=== PATIENT | female | born 1960 | race Caucasian/White ===

== ENCOUNTER 2018-03-18 01:19 | Emergency (ER) | payer OTHER ==
[~2018-03-18] VITALS: Ht 165.1 cm; Wt 71.0 kg
[2018-03-18] MEDS ORDERED: ONDANSETRON ODT 4 MG PO ONE (02:00)
[2018-03-18 02:11] LABS: BASOPHILS # (AUTO) 0.02 x10^3/uL (0-0.1); BASOPHILS % (AUTO) 0 % (0-1); EOSINOPHILS # (AUTO) 0.07 x10^3/uL (0-0.4); EOSINOPHILS % (AUTO) 1 % (1-7); LYMPHOCYTES # (AUTO) 1.31 x10^3/uL (1-3.4); LYMPHOCYTES % (AUTO) 22 % (22-44); MD NO; MEAN CORPUSCULAR HEMOGLOBIN 30.2 pg (27.0-34.8); MEAN CORPUSCULAR HGB CONC 34.4 g/dL (32.4-35.8); MEAN CORPUSCULAR VOLUME 87.8 fL (80-100); MONOCYTES # (AUTO) 0.39 x10^3/uL (0.2-0.8); MONOCYTES % (AUTO) 7 % (2-9); NEUTROPHILS % (AUTO) 70 % (42-75); PLATELET COUNT 340 x10^3/uL (130-400); RED BLOOD COUNT 4.25 x10^6/uL (3.82-5.3)
[2018-03-18] MEDS ORDERED: ONDANSETRON ODT 4 MG ONE (02:12)
[2018-03-18 02:21] LABS: ALANINE AMINOTRANSFERASE 31 U/L (12-78); ALBUMIN 4.4 g/dL (3.4-5.0); ANION GAP 7 mmol/L (5-15); CALCIUM 11.1 mg/dL (8.5-10.1); CHLORIDE 102 mmol/L (98-107); CREATININE 0.91 mg/dL (0.55-1.02)
[2018-03-18 02:26] LABS: ALKALINE PHOSPHATASE 70 U/L (45-117); BILIRUBIN,TOTAL 0.5 mg/dL (0.2-1.0); TOTAL PROTEIN 8.4 g/dL (6.4-8.2); TROPONIN I < 0.015 ng/mL (0.000-0.045)
[2018-03-18 03:02] LABS: MICROSCOPIC AUTO
[2018-03-18 03:17] LABS: CULTURE INDICATED? YES
[2018-03-18] MEDS ORDERED: MECLIZINE CHEWABLE 25 MG TAB ONE (03:49)
[2018-03-18] MEDS ORDERED: MECLIZINE CHEWABLE 25 MG TAB PO ONE (04:00)
[2018-03-18 04:05] VITALS: BP 151/88
== END 2018-03-18 04:24 | disposition home or self-care (01) ==
LOC: ED 04:20
DX: R42 Dizziness and giddiness (principal); R11.10 Vomiting, unspecified; R51 Headache; I10 Essential (primary) hypertension; R82.99 Other abnormal findings in urine; Z88.8 Allergy status to other drugs, medicaments and biological substances; Z88.5 Allergy status to narcotic agent
CPT/HCPCS: 36415; 80053; 81001; 84443; 84484; 85025; 87086; 93005; 99285; Q0162

== ENCOUNTER 2019-03-07 22:52 | Emergency (ER) | payer OTHER ==
[~2019-03-07] VITALS: Ht 167.6 cm; Wt 77.3 kg
--- NOTE | 2019-03-07 23:10 | NUR ---
PT STATES OVER THE PAST 2-3 DAYS SHE HAS HAD DIZZINESS, NAUSEA WITH NO VOMITTING. PT STATES SHE HAD LOOSE STOOLS, TWO TIMES TODAY. PT RESTING ON JOHANA POWELL AT BEDSIDE PER PT REQUEST.
--- NOTE | 2019-03-07 23:12 | NUR ---
ER MD POND AT BEDSIDE TO ASSESS.
--- NOTE | 2019-03-07 23:13 | NUR ---
PT ATTACHED TO ALL MONITORS
[2019-03-07] MEDS ORDERED: MECLIZINE CHEWABLE 25 MG TAB ONE (23:28)
[2019-03-07] MEDS ORDERED: ONDANSETRON 2MG/ML, 2ML IVPush ONE (23:30)
[2019-03-07] MEDS ORDERED: MECLIZINE CHEWABLE 25 MG TAB PO ONE (23:30)
[2019-03-07 23:41] LABS: BASOPHILS # (AUTO) 0.01 x10^3/uL (0-0.1); BASOPHILS % (AUTO) 0 % (0-1); EOSINOPHILS # (AUTO) 0.04 x10^3/uL (0-0.4); EOSINOPHILS % (AUTO) 1 % (1-7); LYMPHOCYTES # (AUTO) 1.11 x10^3/uL (1-3.4); LYMPHOCYTES % (AUTO) 17 % (22-44); MD NO; MEAN CORPUSCULAR HEMOGLOBIN 29.8 pg (27.0-34.8); MEAN CORPUSCULAR HGB CONC 33.6 g/dL (32.4-35.8); MEAN CORPUSCULAR VOLUME 88.9 fL (80-100); MEAN PLATELET VOLUME 7.9 fL (7.4-10.4); MONOCYTES # (AUTO) 0.36 x10^3/uL (0.2-0.8); MONOCYTES % (AUTO) 6 % (2-9); NEUTROPHILS # (AUTO) 4.94 x10^3/uL (1.8-6.8); NEUTROPHILS % (AUTO) 76 % (42-75); PLATELET COUNT 289 x10^3/uL (130-400); RED BLOOD COUNT 4.22 x10^6/uL (3.82-5.3); RED CELL DISTRIBUTION WIDTH 13.4 % (9.6-15.2)
[2019-03-07] MEDS ORDERED: ONDANSETRON ODT 4 MG ONE (23:48)
[2019-03-07 23:53] LABS: ALANINE AMINOTRANSFERASE 31 U/L (12-78); ANION GAP 12 mmol/L (5-15); CALCIUM 9.4 mg/dL (8.5-10.1); CHLORIDE 98 mmol/L (98-107); CREATININE 0.94 mg/dL (0.55-1.02)
[2019-03-07 23:58] LABS: ALKALINE PHOSPHATASE 97 U/L (45-117); BILIRUBIN,TOTAL 0.4 mg/dL (0.2-1.0); TROPONIN I < 0.015 ng/mL (0.000-0.045)
[2019-03-08] MEDS ORDERED: POTASSIUM CHLORIDE 20 MEQ TAB.ER.PRT ONE (00:04)
[2019-03-08] MEDS ORDERED: POTASSIUM CHLORIDE 20 MEQ TAB.ER.PRT PO ONE (00:30)
[2019-03-08] MEDS ORDERED: ONDANSETRON ODT 4 MG PO ONE (00:30)
--- NOTE | 2019-03-08 01:09 | NUR ---
CALLED [facility] AND INQUIRED ABOUT DELAY IN RESULTS FOR CXR. RAD SAID THEY WILL LOOK INTO IT AND CALL BACK
--- NOTE | 2019-03-08 01:11 | NUR ---
RECEIVED REPORT FROM NADINE THOMPSON AND NADINE PEGUERO TO ASSUME CARE OF PT. AWAITING RAD READ ON X-RAY.
--- NOTE | 2019-03-08 01:15 | NUR ---
REPORT GIVEN TO NADINE ESPINO
[2019-03-08] MEDS ORDERED: PROMETHAZINE 25 MG/ML, 1ML ONE (01:43)
[2019-03-08] MEDS ORDERED: PROMETHAZINE 25 MG/ML, 1ML IM ONE (02:00)
[2019-03-08 02:13] VITALS: BP 145/78
== END 2019-03-08 02:14 | disposition home or self-care (01) ==
LOC: ED 03-08 00:05
DX: R42 Dizziness and giddiness (principal); R11.0 Nausea
CPT/HCPCS: 36415; 71045; 80053; 84484; 85025; 93005; 96372; 99284; J2550; Q0162

== ENCOUNTER → 2019-09-27 | Outpatient (CLI) | payer BC | END | disposition home or self-care (01) | LOC: CFH 15:20 | PROVIDERS: ATTEND Orthopaedic Surgery | DX: M25.775 Osteophyte, left foot (principal); M21.6X2 Other acquired deformities of left foot ==

== ENCOUNTER 2019-10-07 15:39 | Outpatient (CLI) | payer BC ==
[2019-10-07] MEDS ORDERED: FENO135C4 PO (16:30)
[2019-10-07] MEDS ORDERED: IBUP-1223 PO (16:30)
[2019-10-07] MEDS ORDERED: CYCL-259 PO (16:30)
[2019-10-07] MEDS ORDERED: HYDR25TA6 PO (16:30)
[2019-10-07] MEDS ORDERED: MULT-658 PO (16:30)
[2019-10-07] MEDS ORDERED: OMEP20TA62 PO (16:30)
[2019-10-07] MEDS ORDERED: VITA400C43 PO (16:30)
[2019-10-07] MEDS ORDERED: POTA99TA2 PO (16:30)
[2019-10-07 17:00] LABS: ALANINE AMINOTRANSFERASE 28 U/L (12-78); ALBUMIN 4.1 g/dL (3.4-5.0); ANION GAP 6 mmol/L (5-15); CALCIUM 9.5 mg/dL (8.5-10.1); CHLORIDE 99 mmol/L (98-107); CREATININE 0.85 mg/dL (0.55-1.02)
[2019-10-07 17:02] LABS: ALKALINE PHOSPHATASE 91 U/L (45-117); BILIRUBIN,TOTAL 0.4 mg/dL (0.2-1.0); TOTAL PROTEIN 8.3 g/dL (6.4-8.2)
== END 2019-10-07 23:59 | disposition home or self-care (01) ==
LOC: STAR 15:39
PROVIDERS: ATTEND Orthopaedic Surgery
DX: Z01.812 Encounter for preprocedural laboratory examination (principal); M14.672 Charcot's joint, left ankle and foot
CPT/HCPCS: 36415; 80053

== ENCOUNTER 2019-10-14 08:25 | Inpatient (IN) | payer BC ==
[~2019-10-14] VITALS: Ht 167.6 cm; Wt 82.0 kg
[~2019-10-14 08:25] MED LIST: CYCL-259 PO; FENO135C4 PO; HYDR25TA6 PO; IBUP-1223 PO; MULT-658 PO; OMEP20TA62 PO; POTA99TA2 PO; VITA400C43 PO
[2019-10-14] MEDS ORDERED: LACTATED RINGERS 1,000 ML IV SCH (08:52)
[2019-10-14] MEDS ORDERED: ACETAMINOPHEN 500 MG TABLET PO ONE (09:00)
[2019-10-14] MEDS ORDERED: FENTANYL PF 250 MCG/5ML ONE (09:20)
[2019-10-14] MEDS ORDERED: MIDAZOLAM 1 MG/ML, 2ML ONE (09:20)
[2019-10-14] MEDS ORDERED: PROPOFOL 10 MG/ML, 20ML ONE (09:20)
[2019-10-14] MEDS ORDERED: DEXAMETHASONE 4 MG/ML, 1ML ONE ×2 (09:21)
[2019-10-14] MEDS ORDERED: ONDANSETRON 2MG/ML, 2ML ONE (09:21)
[2019-10-14] MEDS ORDERED: LIDOCAINE-MPF 2% ,5ML ONE (09:21)
[2019-10-14] MEDS ORDERED: CEFAZOLIN 1,000 MG ONE ×2 (09:21)
[2019-10-14] MEDS ORDERED: GLYCOPYRROLATE 0.2MG/1ML, 5ML ONE (10:25)
[2019-10-14] MEDS ORDERED: NEOSTIGMINE 1 MG/ML, 10ML ONE (10:25)
[2019-10-14] MEDS ORDERED: ROCURONIUM 10MG/ML,5ML ONE (10:25)
[2019-10-14] MEDS ORDERED: ROPIVACAINE 0.2% INJ ONE (11:00)
[2019-10-14] MEDS ORDERED: FENTANYL PF 100 MCG/2ML ONE (13:46)
[2019-10-14] MEDS: FENTANYL PF 100 MCG/2ML IV PRN ×4 (13:48→14:21)
[2019-10-14] MEDS ORDERED: GABAPENTIN 300 MG CAPSULE PO ONE (14:00)
[2019-10-14] MEDS ORDERED: HYDROmorphone 1 MG/ML, 1ML INJ IV PRN (14:00)
[2019-10-14] MEDS ORDERED: ONDANSETRON 2MG/ML, 2ML IV PRN ×2 (14:00→16:00)
[2019-10-14] MEDS ORDERED: LORazepam 2 MG/ML, 1ML IVPush PRN (14:00)
[2019-10-14] MEDS ORDERED: MEPERIDINE/PF 25MG/ML,1ML IVPush PRN (14:00)
[2019-10-14] MEDS ORDERED: HYDROmorphone 2 MG/ML, 1ML IVPush PRN (14:00)
[2019-10-14] MEDS ORDERED: BISACODYL 10 MG SUPP PR PRN (16:00)
[2019-10-14] MEDS ORDERED: HYDROcodone/APAP 5/325 TABLET PO PRN (16:00)
[2019-10-14] MEDS ORDERED: ACETAMINOPHEN 325 MG TABLET PO PRN (16:00)
[2019-10-14] MEDS ORDERED: DIPHENHYDRAMINE 25 MG CAPSULE PO PRN (16:00)
[2019-10-14] MEDS ORDERED: SENNA/DOCUSATE TABLET PO PRN (16:00)
[2019-10-14] MEDS: CEFAZOLIN PMX 2GM/50ML 50 ML IVPB SCH (18:24)
[2019-10-14 19:30] VITALS: BP 134/84
[2019-10-14] MEDS ORDERED: CYCLOBENZAPRINE 10 MG TABLET PO SCH (21:00)
[2019-10-14] MEDS: SODIUM CHLORIDE FLUSH 10ML SYR IVF SCH ×2 (21:00→21:15)
[2019-10-14] MEDS ORDERED: VITAMIN E 400 UNITS CAPSULE PO SCH (21:00)
[2019-10-14] MEDS: DOCUSATE 100 MG CAPSULE PO SCH (21:15)
[2019-10-14] MEDS ORDERED: ONDANSETRON 2MG/ML, 2ML IVPush PRN (22:00)
[2019-10-14] MEDS ORDERED: ONDANSETRON ODT 4 MG PO PRN (22:00)
[2019-10-15] VITALS: BP 126/88
[2019-10-15] MEDS: CEFAZOLIN PMX 2GM/50ML 50 ML IVPB SCH (02:14)
[2019-10-15 03:58] VITALS: BP 122/79
[2019-10-15] MEDS ORDERED: OMEPRAZOLE 20 MG CAPSULE.DR PO SCH (06:00)
[2019-10-15 07:09] VITALS: BP 135/82
[2019-10-15] MEDS: DOCUSATE 100 MG CAPSULE PO SCH (08:34)
[2019-10-15] MEDS: SODIUM CHLORIDE FLUSH 10ML SYR IVF SCH ×2 (08:36)
[2019-10-15] MEDS ORDERED: MULTIVITAMIN 1 TABLET PO SCH (09:00)
[2019-10-15] MEDS ORDERED: FENOFIBRATE 145 MG TABLET PO SCH (09:00)
[2019-10-15] MEDS ORDERED: HYDROCHLOROTHIAZIDE 25 MG TABLET PO SCH (09:00)
[2019-10-15 11:53] VITALS: BP 140/88
== END 2019-10-15 13:30 | disposition home or self-care (01) | DRG 505 ==
LOC: ORIP 08:25 → 4NE 15:34
PROVIDERS: ADMIT Orthopaedic Surgery; ATTEND Orthopaedic Surgery
PROC: 0QHM35Z Insertion of External Fixation Device into Left Tarsal, Percutaneous Approach (ICD-10-PCS; 2019-10-14)
PROC: 0SSG34Z Reposition Left Ankle Joint with Internal Fixation Device, Percutaneous Approach (ICD-10-PCS; 2019-10-14)
PROC: 3E0T3BZ Introduction of Anesthetic Agent into Peripheral Nerves and Plexi, Percutaneous Approach (ICD-10-PCS; 2019-10-14)
PROC: 0L8P3ZZ Division of Left Lower Leg Tendon, Percutaneous Approach (ICD-10-PCS; principal; 2019-10-14 10:15)
PROC: 0QSM04Z Reposition Left Tarsal with Internal Fixation Device, Open Approach (ICD-10-PCS; 2019-10-14 10:15)
DX: M14.672 Charcot's joint, left ankle and foot (principal); K21.9 Gastro-esophageal reflux disease without esophagitis; I10 Essential (primary) hypertension; M21.6X2 Other acquired deformities of left foot; F41.9 Anxiety disorder, unspecified; Z88.6 Allergy status to analgesic agent; Z88.8 Allergy status to other drugs, medicaments and biological substances; Z79.899 Other long term (current) drug therapy; Z88.5 Allergy status to narcotic agent
CPT/HCPCS: 73620; 76000; J3490; C1713; G0378; J0690; J1100; J1170; J2250; J2405; J2704; J2710; J2795; J3010; Q0162; J7120

== ENCOUNTER → 2019-10-28 | Outpatient (CLI) | payer BC | END | disposition home or self-care (01) | LOC: RAD 15:53 | PROVIDERS: ATTEND Orthopaedic Surgery | DX: M14.672 Charcot's joint, left ankle and foot (principal) ==

== ENCOUNTER → 2021-03-13 | Outpatient (CLI) | payer BC ==
[~2021-03-13] MED LIST changes: +BISA5TAB5 PO; -CYCL-259 PO; +CYCL10TA2 PO; +MECL-101 PO
[2021-03-13 13:57] LABS: ALBUMIN 3.7 g/dL (3.4-5.0); ANION GAP 5 mmol/L (5-15); CALCIUM 9.7 mg/dL (8.5-10.1); CHLORIDE 100 mmol/L (98-107)
[2021-03-13 14:03] LABS: ALANINE AMINOTRANSFERASE 33 U/L (12-78); ALKALINE PHOSPHATASE 109 U/L (45-117); BILIRUBIN,TOTAL 0.5 mg/dL (0.2-1.0); CREATININE 0.78 mg/dL (0.55-1.02); TOTAL PROTEIN 7.9 g/dL (6.4-8.2)
== END | disposition home or self-care (01) ==
LOC: STAR 12:20
PROVIDERS: ADMIT Orthopaedic Surgery; ATTEND Orthopaedic Surgery
DX: Z01.818 Encounter for other preprocedural examination (principal); M14.671 Charcot's joint, right ankle and foot; I51.7 Cardiomegaly; R00.0 Tachycardia, unspecified
CPT/HCPCS: 36415; 80053; 93005

== ENCOUNTER 2021-03-22 06:54 | Day surgery (SDC) | payer BC ==
[~2021-03-22] VITALS: Ht 167.6 cm; Wt 78.4 kg
[2021-03-22] MEDS ORDERED: MIDAZOLAM 1 MG/ML, 2ML ONE (07:21)
[2021-03-22] MEDS ORDERED: FENTANYL PF 250 MCG/5ML ONE (07:22)
[2021-03-22 07:44] VITALS: BP 134/86
[2021-03-22] MEDS ORDERED: BUPIVACAINE/PF 0.5% ONE ×3 (07:44→09:48)
[2021-03-22] MEDS ORDERED: LIDOCAINE/PF 1%, 30ML ONE (07:45)
[2021-03-22] MEDS ORDERED: CHLORHEXIDINE 15 ML UDC ONE (07:45)
[2021-03-22] MEDS ORDERED: CHLORHEXIDINE 15 ML UDC PO ONE (08:00)
[2021-03-22] MEDS ORDERED: LIDOCAINE-MPF 1%, 2ML INFIL ONE (08:00)
[2021-03-22] MEDS ORDERED: LACTATED RINGERS 1,000 ML IV SCH (08:00)
[2021-03-22] MEDS ORDERED: TRANEXAMIC ACID 100 MG/ML, 10ML ONE (08:51)
[2021-03-22] MEDS ORDERED: PROMETHAZINE 25 MG/ML, 1ML IVPush PRN (09:30)
[2021-03-22] MEDS ORDERED: ROPIvacaine/PF 0.2%, 100ML 550 ML (check volume) INJ ONE (09:30)
[2021-03-22] MEDS ORDERED: ALBUTEROL SULFATE 2.5 MG/3 ML NPPB PRN (09:30)
[2021-03-22] MEDS ORDERED: MIDAZOLAM 1 MG/ML, 2ML IV PRN (09:30)
[2021-03-22] MEDS ORDERED: HYDROcodone/APAP 7.5-325MG/15ML UDC PO PRN (09:30)
[2021-03-22] MEDS ORDERED: LABETALOL 5MG/ML, 20ML IV PRN (09:30)
[2021-03-22] MEDS ORDERED: HYDROmorphone 1 MG/ML, 1ML INJ IVPush PRN (09:30)
[2021-03-22] MEDS ORDERED: ACETAMINOPHEN 325 MG TABLET PO PRN (09:30)
[2021-03-22] MEDS ORDERED: MEPERIDINE/PF 25MG/0.5ML IVPush PRN (09:30)
[2021-03-22] MEDS ORDERED: ONDANSETRON 2MG/ML, 2ML ONE (09:48)
[2021-03-22] MEDS ORDERED: PROPOFOL 10 MG/ML, 20ML ONE (09:48)
[2021-03-22] MEDS ORDERED: ROCURONIUM 10MG/ML,5ML ONE (09:48)
[2021-03-22] MEDS ORDERED: SUCCINYLCHOLINE 20 MG/ML, 10ML ONE (09:48)
[2021-03-22] MEDS ORDERED: DEXAMETHASONE 4 MG/ML, 1ML ONE (09:48)
[2021-03-22] MEDS ORDERED: LIDOCAINE-MPF 2% ,5ML ONE (09:48)
[2021-03-22] MEDS ORDERED: CEFAZOLIN 1,000 MG ONE (09:48)
[2021-03-22] MEDS ORDERED: VANCOMYCIN 1,000 MG ONE (10:38)
[2021-03-22] MEDS ORDERED: FENTANYL PF 100 MCG/2ML ONE (13:56)
[2021-03-22] MEDS ORDERED: ACETAMINOPHEN 650 MG/20.3 ML UDC ONE (13:56)
[2021-03-22] MEDS: FENTANYL PF 100 MCG/2ML IV PRN ×2 (14:01→14:09)
== END 2021-03-22 16:50 | disposition home or self-care (01) ==
LOC: OUT 06:54
PROVIDERS: ATTEND Orthopaedic Surgery
DX: M14.671 Charcot's joint, right ankle and foot (principal); T84.84XA Pain due to internal orthopedic prosthetic devices, implants and grafts, initial encounter; S92.251 Displaced fracture of navicular [scaphoid] of right foot; S93.324A Dislocation of tarsometatarsal joint of right foot, initial encounter; M21.6X1 Other acquired deformities of right foot; M24.574 Contracture, right foot; G62.9 Polyneuropathy, unspecified; I10 Essential (primary) hypertension; K21.9 Gastro-esophageal reflux disease without esophagitis; Z79.899 Other long term (current) drug therapy; Z88.5 Allergy status to narcotic agent; Z91.030 Bee allergy status; X58.XXXD Exposure to other specified factors, subsequent encounter; Y83.8 Other surgical procedures as the cause of abnormal reaction of the patient, or of later complication, without mention of misadventure at the time of the procedure; X58.XXXA Exposure to other specified factors, initial encounter; Y93.89 Activity, other specified; Y92.89 Other specified places as the place of occurrence of the external cause; Y99.8 Other external cause status
CPT/HCPCS: 20680; 20692; 27687; 28450; 28555; 28615; 28737; 64445; 64447; 73630; C1713; C1762; J0330; J0690; J1100; J2250; J2405; J2704; J2795; J3010; J7120; 76000; J3370